=== PATIENT | male | born 1990 | race American Indian/Alaskan Native ===

== ENCOUNTER 2020-09-11 09:13 | Emergency (ER) | payer BC ==
[2020-09-11 09:27] VITALS: BP 140/67
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
--- NOTE | 2020-09-11 10:48 | XRay Report ---
CLINICAL DATA: right hand injury TECHNICAL DATA: Two views were obtained, AP and lateral FINDINGS: There is no acute fracture or dislocation. The visualized joint spaces are normal. IMPRESSION: No acute radiographic abnormality. Signer Name: Leon Moore MD Signed: 09/11/2020 10:43 AM Workstation Name: [id number]
== END 2020-09-11 11:13 | disposition home or self-care (01) ==
LOC: ED 09:13
DX: S66.911A Strain of unspecified muscle, fascia and tendon at wrist and hand level, right hand, initial encounter (principal); S50.11XA Contusion of right forearm, initial encounter; X58.XXXA Exposure to other specified factors, initial encounter; Y93.89 Activity, other specified; Y92.89 Other specified places as the place of occurrence of the external cause; Y99.8 Other external cause status